=== PATIENT | female | born 1985 | race Caucasian/White ===

== ENCOUNTER 2018-08-07 17:57 | Emergency (ER) | payer BC ==
[2018-08-07 18:01] VITALS: BP 110/58; PULSE 70; TEMP 99; BMI 27.8
--- NOTE | 2018-08-07 19:01 | PDOC ---
History of Present Illness - General Chief Complaint: Eye Problem Stated Complaint: EYE PROBLEM Time Seen by Provider: 08/07/18 18:50 History Source: Patient Exam Limitations: Clinical Condition - History of Present Illness Initial Comments: 08/07/18 19:02 Patient with no significant past medical history present with complaint of redness to right upper eyelid and pain. Patient report clear discharge from right eye. Patient denies trauma or injury to eye. Patient denies contact lens use. Timing/Duration: 24 hours Past History - Past Medical History Allergies/Adverse Reactions: Allergies Allergy/AdvReac Type Severity Reaction Status Date / Time No Known Allergies Allergy Verified 08/07/18 18:01 Home Medications: Ambulatory Orders Erythromycin 0.5% Eye Ointment [Erythromycin 0.5% Eye Ointment -] 1 applic TP BID 5 Days #1 tube 08/07/18 Ofloxacin 0.3% Ophth Soln [Ocuflox -] 2 drop OP Q6H 5 Days #1 bottle 08/07/18 metFORMIN HCL [Metformin HCl] 500 mg PO ASDIR 08/07/18 Asthma: Yes COPD: No - Suicide/Smoking/Psychosocial Hx Smoking History: Never smoked Review of Systems - Review of Systems Able to Perform ROS?: Yes Is the patient limited Portuguese proficient: No Constitutional: No: Fever HEENTM: Yes: Symptoms Reported, See HPI, Eye Pain (right eye), Tearing (right eye). No: Blurred Vision, Recent change in vision, Double Vision, Cataracts, Ear Pain, Ocular Prothesis, Ear Discharge, Nose Pain, Nose Congestion, Tinnitus , Nose Bleeding, Hearing Loss, Throat Pain, Throat Swelling, Mouth Pain, Dental Problems, Difficulty Swallowing, Mouth Swelling, Other Respiratory: No: Symptoms reported, See HPI, Cough, Orthopnea, Shortness of Breath, SOB with Exertion, SOB at Rest, Stridor, Wheezing, Productive cough, Hemoptysis, Other Cardiac (ROS): No: Symptoms Reported, See HPI, Chest Pain, Edema, Irregular Heart Rate, Lightheadedness, Palpitations, Syncope, Chest Tightness, Other ABD/GI: No: Nausea, Vomiting Neurological: No: Headache, Dizziness All Other Systems: Reviewed and Negative *Physical Exam - Vital Signs Last Vital Signs Temp Pulse Resp BP Pulse Ox 99 F 70 18 110/58 L 98 08/07/18 17:59 08/07/18 17:59 08/07/18 17:59 08/07/18 17:59 08/07/18 17:59 - Physical Exam Comments: 08/07/18 19:04 GENERAL: Well developed, well nourished. Awake and alert. No acute distress. HEENT: mild swelling with mild erythema to right upper eyelid. Normocephalic, atraumatic. PERRLA, EOMI. No conjunctival pallor. Sclera are non-icteric. Moist mucous membranes. Oropharynx is clear. NECK: Supple. Full ROM. CARDIOVASCULAR: Regular rate and rhythm. No murmurs, rubs, or gallops. Distal pulses are 2+ and symmetric. PULMONARY: No evidence of respiratory distress. Lungs clear to auscultation bilaterally. No wheezing, rales or rhonchi. ABDOMINAL: Soft. Non-tender. Non-distended. No rebound or guarding. No organomegaly. Normoactive bowel sounds. SKIN: Warm and dry. NEUROLOGICAL: Alert, awake, appropriate. Gait is normal without ataxia. PSYCHIATRIC: Cooperative. Good eye contact. Appropriate mood General Appearance: Yes: Nourished, Appropriately Dressed. No: Apparent Distress Moderate Sedation - Procedure Monitoring Vital Signs: Procedure Monitoring Vital Signs Temperature 99 F 08/07/18 17:59 Pulse Rate 70 08/07/18 17:59 Respiratory Rate 18 08/07/18 17:59 Blood Pressure 110/58 L 08/07/18 17:59 O2 Sat by Pulse Oximetry (%) 98 08/07/18 17:59 Medical Decision Making - Medical Decision Making 08/07/18 19:05 Patient with no significant past medical history present with complaint of redness to right upper eyelid and pain. Patient report clear discharge from right eye. Patient denies trauma or injury to eye. Exam significant for mild erythema and mild swelling to right upper eyelid. No conjunctival erythema. Patient symptoms likely blepharitis of right upper eyelid. Patient is stable for outpatient treatment with ophthalmology follow-up as needed. *DC/Admit/Observation/Transfer Diagnosis at time of Disposition: Blepharitis of eyelid of right eye Qualifiers: Blepharitis type: unspecified type Eyelid: upper Qualified Code(s): H01.001 - Unspecified blepharitis right upper eyelid - Discharge Dispostion Disposition: HOME Condition at time of disposition: Stable Decision to Admit order: No - Prescriptions Prescriptions: Erythromycin 0.5% Eye Ointment [Erythromycin 0.5% Eye Ointment -] 1 applic TP BID 5 Days #1 tube Ofloxacin 0.3% Ophth Soln [Ocuflox -] 2 drop OP Q6H 5 Days #1 bottle - Referrals Referrals: Jolene Garg MD [Primary Care Provider] - Ranulfo Mercado MD [Staff Physician] - - Patient Instructions Printed Discharge Instructions: DI for Blepharitis Additional Instructions: Take medications as prescribed. Apply warm compress to right upper eyelid for 5- 10 minutes 2-3 times a day as needed. Follow-up referred ophthalmology if symptoms does not improve in 3 days. - Post Discharge Activity
== END 2018-08-07 19:08 | disposition home or self-care (01) ==
LOC: JERFT 17:57
DX: H01.001 Unspecified blepharitis right upper eyelid (principal)
CPT/HCPCS: 99281-25

== ENCOUNTER 2018-08-25 12:17 | Emergency (ER) | payer OTHER, BC ==
[2018-08-25 12:34] VITALS: BMI 23.6
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
[2018-08-25] MEDS ORDERED: ACETAMINOPHEN 325 MG TABLET (FP) PO ONE (13:07)
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
[2018-08-25] MEDS ORDERED: ACETAMINOPHEN 325 MG TABLET (FP) ONE (13:14)
[2018-08-25 13:59] LABS: BASO % 0.4 % (0-2.0); HEMOGLOBIN 13.4 GM/dL (10.7-15.3); MEAN CELL VOLUME 92.3 fl (80-96); WHITE BLOOD COUNT 13.8 K/mm3 (4.0-10.0)
[2018-08-25 14:01] LABS: EOS % 1.1 % (0-4.5); HEMATOCRIT 37.8 % (32.4-45.2); LYMPH % 21.8 % (8-40); MCH 32.7 pg (25.7-33.7); MCHC 35.4 g/dl (32.0-36.0); MONO % 5.8 % (3.8-10.2); NEUT % 70.9 % (42.8-82.8); PLATELET COUNT 209 K/MM3 (134-434); RBC 4.09 M/mm3 (3.60-5.2); RDW 12.3 % (11.6-15.6)
[2018-08-25 14:33] LABS: ALBUMIN 4.1 g/dl (3.4-5.0); ALK PHOS 60 U/L (45-117); ANION GAP 5 MMOL/L (8-16); BILIRUBIN,TOTAL 0.3 mg/dL (0.2-1); BLOOD UREA NITROGEN 13 mg/dL (7-18); CALCIUM 8.8 mg/dL (8.5-10.1); CHLORIDE 106 mmol/L (98-107); CO2 28 mmol/L (21-32); CREATININE 0.7 mg/dL (0.55-1.3); GLUCOSE,RANDOM 87 mg/dL (74-106); POTASSIUM 3.8 mmol/L (3.5-5.1); SGOT/AST 12 U/L (15-37); SGPT/ALT 25 U/L (13-61); SODIUM 140 mmol/L (136-145); TOT PROT 7.1 g/dl (6.4-8.2)
[2018-08-25 15:33] VITALS: BP 108/42; PULSE 70; TEMP 98.6
== END 2018-08-25 15:33 | disposition home or self-care (01) ==
LOC: JER 12:17 → SUPCPDRO 12:17 → JER 15:33
DX: Z04.1 Encounter for examination and observation following transport accident (principal); V43.52XA Car driver injured in collision with other type car in traffic accident, initial encounter; Y93.89 Activity, other specified; Y92.89 Other specified places as the place of occurrence of the external cause; E28.2 Polycystic ovarian syndrome; J45.909 Unspecified asthma, uncomplicated
CPT/HCPCS: 36415; 71046-TC-FY; 80053; 84703; 85025; 99282-25